=== PATIENT | female | born 2000 | race Caucasian/White ===

== ENCOUNTER 2019-08-01 09:36 | Emergency (ER) | payer BC ==
[~2019-08-01] VITALS: Ht 167.6 cm; Wt 86.2 kg
[2019-08-01 09:47] LABS: URINE BILIRUBIN NEGATIVE (Negative); URINE BLOOD 3+ (Negative); URINE CLARITY CLEAR; URINE COLOR YELLOW; URINE GLUCOSE-RANDOM NEGATIVE (Negative); URINE KETONES NEGATIVE (Negative); URINE LEUKOCYTES-REFLEX 1+ (Negative); URINE NITRITE-REFLEX NEGATIVE (Negative); URINE PROTEIN NEGATIVE (Negative); URINE SPECIFIC GRAVITY 1.025 (1.005-1.030); URINE UROBILINOGEN 0.2 E.U./dl (0.2-1.0)
[2019-08-01] MEDS ORDERED: LOMAIRA8 MG PO (09:48)
[2019-08-01 09:55] LABS: BACTERIA-REFLEX >30 Many /HPF (None Seen); CASTS None Seen /LPF (None Seen); CRYSTALS None Seen /LPF (None Seen); SQUAMOUS >10 Many /LPF (0-3); URINE RBC None Seen /HPF (0-2)
[2019-08-01] MEDS ORDERED: CIPRO500 M1 PO (10:46)
[2019-08-01 11:13] VITALS: BP 126/81
== END 2019-08-01 11:14 | disposition home or self-care (01) ==
LOC: M.ERS 09:36
PROVIDERS: Emergency Medicine Emergency Medical Services
DX: N12 Tubulo-interstitial nephritis, not specified as acute or chronic (principal); M54.5 Low back pain; N39.0 Urinary tract infection, site not specified

== ENCOUNTER 2020-12-30 18:10 | Emergency (ER) | payer BC ==
[~2020-12-30] VITALS: Ht 165.1 cm; Wt 90.7 kg
[~2020-12-30 18:10] MED LIST: CIPRO500 M1 PO; LOMAIRA8 MG PO
[2020-12-30] MEDS ORDERED: XANAX2 MG PO (18:24)
[2020-12-30 18:56] LABS: URINE BILIRUBIN NEGATIVE (Negative); URINE BLOOD NEGATIVE (Negative); URINE CLARITY CLEAR; URINE COLOR YELLOW; URINE GLUCOSE-RANDOM NEGATIVE (Negative); URINE KETONES NEGATIVE (Negative); URINE LEUKOCYTES-REFLEX NEGATIVE (Negative); URINE NITRITE-REFLEX NEGATIVE (Negative); URINE PROTEIN NEGATIVE (Negative); URINE SPECIFIC GRAVITY <= 1.005 (1.005-1.030); URINE UROBILINOGEN 0.2 E.U./dl (0.2-1.0)
[2020-12-30 18:58] LABS: ABSOLUTE BASOPHILS 0.1 thou/uL (0.0-0.2); ABSOLUTE EOSINOPHILS 0.2 thou/uL (0.0-0.7); ABSOLUTE MONOCYTES 0.6 thou/uL (0.0-1.2); ABSOLUTE NEUTROPHILS 7.4 thou/uL (1.6-8.1); BASOPHILS 0.6 %; HEMATOCRIT 40.9 % (37.0-47.0); HEMOGLOBIN 13.6 gm/dL (12.0-15.0); LYMPHOCYTES 19.7 %; MCH 27.6 pg (26.0-34.0); MCHC 33.1 g/dL (28.0-37.0); MCV 83.3 fL (80.0-100.0); MONOCYTES 6.2 %; MPV 8.8 fl. (7.2-11.1); NUCLEATED RBCS 0 /100WBC; PLATELET COUNT* 266 thou/uL (150-400); POLYS 71.5 %; RBC 4.91 mil/uL (4.20-5.00); RDW-CV 13.1 % (10.5-14.5); WBC 10.3 thou/uL (4.0-11.0)
[2020-12-30 19:14] LABS: CALCIUM 8.8 mg/dL (8.5-10.1); CREATININE 0.7 mg/dL (0.6-1.3); POTASSIUM 3.8 mmol/L (3.5-5.1)
[2020-12-30 19:21] LABS: ALBUMIN 3.9 g/dL (3.4-5.0); TOTAL BILIRUBIN 0.2 mg/dL (<0.1-1.0); TOTAL PROTEIN 7.5 g/dL (6.4-8.2)
[2020-12-30] MEDS ORDERED: PROAIR HFA8.5 GM INH (19:54)
[2020-12-30] MEDS ORDERED: VISTARIL 25 MG25 M1 PO (19:54)
[2020-12-30 20:03] VITALS: BP 134/71
--- NOTE | 2020-12-31 11:01 | EKG ---
[place] [address] ELECTROCARDIOGRAM REPORT Name: NELI FAIR Room: [facility]#: [id number] Admission: 12/30/20 Attend Phys: Discharge: 12/30/20 Date of : 89 Date of Service: 12/30/201815 Report #: [id number] THIS REPORT FOR: //name// [facility] ED Test Date: 2020-12-30 Test Time: 18:16:48 Pat Name: NELI RYANAGE Department: Room: Gender: F [employer]rrigation System Installer: [facility] : 2000 Requested By: Jon Ventura Order Number: [id number] MD: Alexandre Catalan Measurements Intervals [place] Rate: 96 P: 37 WI: 131 QRS: 30 QRSD: 84 T: 38 QT: 327 QTc: 414 Interpretive Statements Sinus rhythm No previous ECG available for comparison Electronically Signed On 12-31-2020 11:01:25 CDT by Alexandre Catalan [email or web address] <ELECTRONICALLY SIGNED> By: Alexandre Catalan MD, [facility] 12/31/20 110 15 15 Alexandre Catalan MD, FACC /EPI
== END 2020-12-30 20:04 | disposition home or self-care (01) ==
LOC: M.ERS 18:10
PROVIDERS: Physician Assistant
DX: R06.00 Dyspnea, unspecified (principal)

== ENCOUNTER 2021-08-19 18:55 | Emergency (ER) | payer BC ==
[~2021-08-19] VITALS: Ht 165.1 cm; Wt 81.7 kg
[~2021-08-19 18:55] MED LIST changes: +PROAIR HFA8.5 GM INH; +VISTARIL 25 MG25 M1 PO; +XANAX2 MG PO
[2021-08-19 19:42] VITALS: BP 135/80
[2021-08-19] MEDS ORDERED: FLUOXETINE HCL25 GM PO (19:45)
[2021-08-19 20:39] LABS: URINE BILIRUBIN NEGATIVE (Negative); URINE BLOOD NEGATIVE (Negative); URINE CLARITY CLEAR; URINE COLOR YELLOW; URINE GLUCOSE-RANDOM NEGATIVE (Negative); URINE KETONES NEGATIVE (Negative); URINE LEUKOCYTES-REFLEX 1+ (Negative); URINE NITRITE-REFLEX NEGATIVE (Negative); URINE PROTEIN NEGATIVE (Negative); URINE UROBILINOGEN 0.2 E.U./dl (0.2-1.0)
[2021-08-19 21:02] LABS: SQUAMOUS 4-10 Moderate /LPF (0-3); URINE WBC-REFLEX 6-15 Few /HPF (0-5)
[2021-08-19 21:03] LABS: CASTS None Seen /LPF (None Seen); CRYSTALS None Seen /LPF (None Seen); URINE RBC 0-2 Rare /HPF (0-2)
== END 2021-08-19 20:48 | disposition left against medical advice (07) ==
LOC: M.ERS 18:55
PROVIDERS: Emergency Medicine
DX: R10.32 Left lower quadrant pain (principal); Z53.21 Procedure and treatment not carried out due to patient leaving prior to being seen by health care provider

== ENCOUNTER 2021-08-20 22:00 | Emergency (ER) | payer BC ==
[~2021-08-20] VITALS: Ht 165.1 cm; Wt 81.7 kg
[~2021-08-20 22:00] MED LIST changes: +FLUOXETINE HCL25 GM PO
[2021-08-20 22:25] LABS: URINE BILIRUBIN NEGATIVE (Negative); URINE BLOOD NEGATIVE (Negative); URINE CLARITY CLEAR; URINE COLOR YELLOW; URINE GLUCOSE-RANDOM NEGATIVE (Negative); URINE KETONES NEGATIVE (Negative); URINE LEUKOCYTES-REFLEX NEGATIVE (Negative); URINE NITRITE-REFLEX NEGATIVE (Negative); URINE PROTEIN NEGATIVE (Negative); URINE SPECIFIC GRAVITY 1.025 (1.005-1.030); URINE UROBILINOGEN 0.2 E.U./dl (0.2-1.0)
[2021-08-21 01:23] LABS: HEMATOCRIT 39.8 % (37.0-47.0); HEMOGLOBIN 13.4 gm/dL (12.0-15.0); MCH 27.6 pg (26.0-34.0); MCHC 33.7 g/dL (28.0-37.0); MCV 81.7 fL (80.0-100.0); MPV 8.7 fl. (7.2-11.1); RBC 4.87 mil/uL (4.20-5.00); RDW-CV 13.6 % (10.5-14.5); WBC 11.8 thou/uL (4.0-11.0)
[2021-08-21 01:27] LABS: CALCIUM 8.5 mg/dL (8.5-10.1); CREATININE 0.8 mg/dL (0.6-1.3); POTASSIUM 3.3 mmol/L (3.5-5.1)
[2021-08-21 01:31] LABS: ALBUMIN 3.5 g/dL (3.4-5.0); TOTAL BILIRUBIN 0.2 mg/dL (<0.1-1.0); TOTAL PROTEIN 7.3 g/dL (6.4-8.2)
[2021-08-21] MEDS ORDERED: HYDROCODON-ACE1 EAC8 PO (04:03)
[2021-08-21 04:20] VITALS: BP 112/68
== END 2021-08-21 04:20 | disposition home or self-care (01) ==
LOC: M.ERS 22:00
PROVIDERS: Emergency Medicine
DX: K63.89 Other specified diseases of intestine (principal); F41.9 Anxiety disorder, unspecified; Z79.899 Other long term (current) drug therapy